=== PATIENT | female | born 1985 | race Caucasian/White ===

== ENCOUNTER 2017-02-17 09:58 | Emergency (ER) | payer BC | END 2017-02-17 10:50 | disposition left against medical advice (07) | LOC: UCEAST 09:58 | DX: N39.0 Urinary tract infection, site not specified (principal); Z53.21 Procedure and treatment not carried out due to patient leaving prior to being seen by health care provider ==

== ENCOUNTER 2017-02-17 11:26 | Emergency (ER) | payer BC, OTHER ==
[2017-02-17 12:56] VITALS: BP 116/58
--- NOTE | 2017-02-17 13:00 | UC ---
Complaint Female HPI - HPI Summary HPI Summary: Day 2 of pain and burning with urination no fevers, chills, nausea or back pain - History Of Current Complaint Chief Complaint: UCGU Stated Complaint: UTI Time Seen by Provider: 02/17/17 12:59 Hx Obtained From: Patient Hx Last Menstrual Period: 02/09/17 ?: No Onset/Duration: Sudden Onset, Lasting Days - 2, Still Present Timing: Constant Severity Initially: Moderate Severity Currently: Mild Pain Intensity: 5 Pain Scale Used: 0-10 Numeric Character: Burning Aggravating Factor(s): Urination Alleviating Factor(s): Nothing Associated Signs And Symptoms: Positive: Negative - Allergies/Home Medications Allergies/Adverse Reactions: Allergies Allergy/AdvReac Type Severity Reaction Status Date / Time No Known Allergies Allergy Verified 01/16/16 08:25 Home Medications: Home Medications Phenazopyridine HCl [Azo Urinary Pain Relief] 2 tab PO PRN 02/17/17 [History] PMH/Surg Hx/FS Hx/Imm Hx Previously Healthy: Yes Other History Of: Negative For: HIV, Hepatitis B, Hepatitis C - Surgical History Surgical History: Yes Surgery Procedure, Year, and Place: x 3; appendectomy. tubal ligation - Family History Known Family History: Positive: Diabetes - Social History Occupation: Employed Full-time Lives: With Family Alcohol Use: Occasionally Substance Use Type: None Smoking Status (MU): Former Smoker Amount Used/How Often: quit 4 years ago When Did the Patient Quit Smoking/Using Tobacco: 09/22/2009 - Immunization History Most Recent Influenza Vaccination: 07/18/13 Most Recent Tetanus Shot: 09/25/13 Most Recent Pneumonia Vaccination: none Review of Systems Constitutional: Negative Skin: Negative Eyes: Negative ENT: Negative Respiratory: Negative Cardiovascular: Negative Gastrointestinal: Negative Genitourinary: Dysuria, Frequency, Urgency Motor: Negative Neurovascular: Negative Musculoskeletal: Negative Neurological: Negative Psychological: Negative All Other Systems Reviewed And Are Negative: Yes Physical Exam Triage Information Reviewed: Yes Appearance: Well-Appearing, No Pain Distress, Well-Nourished Vital Signs: Initial Vital Signs Temp 98.9 F 02/17/17 12:56 Pulse 67 02/17/17 12:56 Resp 18 02/17/17 12:56 BP 116/58 02/17/17 12:56 Pulse Ox 100 02/17/17 12:56 Vital Signs Reviewed: Yes Eye Exam: Normal Eyes: Positive: Conjunctiva Clear ENT Exam: Normal ENT: Positive: Normal ENT inspection, Hearing grossly normal. Negative: Nasal congestion, Nasal drainage, Tonsillar swelling, Tonsillar exudate, Trismus, Muffled/hoarse voice Dental Exam: Normal Neck exam: Normal Neck: Positive: Supple, Nontender Respiratory Exam: Normal Respiratory: Positive: Chest non-tender, Lungs clear, No accessory muscle use Cardiovascular Exam: Normal Cardiovascular: Positive: RRR, No Murmur, Pulses Normal, Brisk Capillary Refill Musculoskeletal Exam: Normal Musculoskeletal: Positive: Strength Intact, ROM Intact, No Edema Neurological Exam: Normal Neurological: Positive: Alert, Muscle Tone Normal Psychological Exam: Normal Skin Exam: Normal Diagnostics - Laboratory Diagnostic Studies Completed/Ordered: Ua +nitrites, + blood Complaint Female Dx - Course Course Of Treatment: Increase fluids, macrobid, pyridium PRM follow with pcp - Differential Dx/Diagnosis Differential Diagnosis/HQI/PQRI: Sexually Transmitted Disease, Ureteral Stone, Urinary Tract Infection Provider Diagnoses: UTI Discharge - Discharge Plan Condition: Stable Disposition: HOME Prescriptions: Nitrofurantoin Monohyd Macro [Macrobid] 100 mg PO BID #20 cap Patient Education Materials: Phenazopyridine (By mouth), Urinary Tract Infection in Women (ED) Referrals: Jackson Andre MD [Primary Care Provider] - If Needed
== END 2017-02-17 13:54 | disposition home or self-care (01) ==
LOC: UCEAST 11:26
DX: Z87.891 Personal history of nicotine dependence (principal); N39.0 Urinary tract infection, site not specified; B96.20 Unspecified Escherichia coli [E. coli] as the cause of diseases classified elsewhere; Z16.11 Resistance to penicillins; Z16.29 Resistance to other single specified antibiotic; Z16.39 Resistance to other specified antimicrobial drug
CPT/HCPCS: 81003; 87077; 87086; 87186; 99212; G0463

== ENCOUNTER 2017-03-30 20:40 | Emergency (ER) | payer OTHER ==
[2017-03-30 20:45] VITALS: BP 141/82
--- NOTE | 2017-03-30 21:25 | UC ---
Jacoby Blankenship Benjamin, scribed for Guy Mitchell MD on 03/30/17 at 2112 . Skin Complaint HPI - HPI Summary HPI Summary: 31yo female presents with a dark scaly spotty rashes 2-3 weeks ago. Rash started in bilateral armpits, then spread to arms, legs, and stomach. LMP was 2 weeks ago. Pt has been applying anti-fungal cream without relief. - History of Current Complaint Chief Complaint: UCSkin Time Seen by Provider: 03/30/17 20:55 Stated Complaint: RASH Hx Obtained From: Patient Hx Last Menstrual Period: 2 WEEKS AGO ?: No Onset/Duration: Gradual Onset, Lasting Weeks, Still Present Onset Severity: Mild Current Severity: Moderate Pain Intensity: 0 Pain Scale Used: 0-10 Numeric Location: Diffuse - armpits, arms, legs, and stomach Character: Redness, Raised Aggravating: Nothing Alleviating: Nothing Associated Signs & Symptoms: Positive: Negative - Allergy/Home Medications Allergies/Adverse Reactions: Allergies Allergy/AdvReac Type Severity Reaction Status Date / Time No Known Allergies Allergy Verified 03/30/17 20:45 Home Medications: Home Medications Clotrimazole 1% CREAM* [Clotrimazole 1%*] PRN 03/30/17 [History] Review of Systems Constitutional: Negative Skin: Rash - bilateral armpits, arms, legs. stomach Eyes: Negative ENT: Negative Respiratory: Negative Cardiovascular: Negative Gastrointestinal: Negative Genitourinary: Negative Motor: Negative Neurovascular: Negative Musculoskeletal: Negative Neurological: Negative Psychological: Negative All Other Systems Reviewed And Are Negative: Yes PMH/Surg Hx/FS Hx/Imm Hx Previously Healthy: Yes Other History Of: Negative For: HIV, Hepatitis B, Hepatitis C - Surgical History Surgical History: Yes Surgery Procedure, Year, and Place: x 3; appendectomy. tubal ligation - Family History Known Family History: Positive: Diabetes Family History: NON CONTRIBUTORY - Social History Occupation: Employed Full-time Lives: With Family Alcohol Use: Occasionally Substance Use Type: None Smoking Status (MU): Former Smoker Amount Used/How Often: quit 4 years ago When Did the Patient Quit Smoking/Using Tobacco: 09/22/2009 - Immunization History Most Recent Influenza Vaccination: 07/18/13 Most Recent Tetanus Shot: 09/25/13 Most Recent Pneumonia Vaccination: none Physical Exam Triage Information Reviewed: Yes Appearance: Well-Appearing, No Pain Distress Vital Signs: Initial Vital Signs Temp 98.4 F 03/30/17 20:42 Pulse 76 03/30/17 20:42 Resp 16 03/30/17 20:42 BP 141/82 03/30/17 20:42 Pulse Ox 98 03/30/17 20:42 Vital Signs Reviewed: Yes ENT: Positive: Normal ENT inspection Neck: Positive: Supple Respiratory: Positive: Lungs clear, Normal breath sounds Cardiovascular: Positive: RRR, No Murmur Abdomen Description: Positive: Nontender Neurological: Positive: Alert, Muscle Tone Normal Psychological: Positive: Normal Response To Family Skin: Positive: rashes - The axilla bilateral are with hyperpigmentation with the periphery red, raised, and lichen like, scaly in places and there are satellite lesions down the inside of both upper arms, as well as some small patches at the waistband area of ther pants on the sides of her abdomen. Course/Dx - Course Course Of Treatment: Reviewed pt's medications list. 31 yr old using lotrimin, but not getting better. I concur this appears to be tinea in nature. Will add diflucan one dose this week and another dose in a week. She has been encouraged to see her primary care doctor so that he can follow the progress and so that she ahs the same doctor seeing her rash week to week. - Diagnoses Provider Diagnoses: tinea corporis Discharge - Discharge Plan Condition: Good Disposition: HOME Prescriptions: Fluconazole 100 MG TAB* [Diflucan 100 MG TAB*] 200 mg PO WEEKLY #4 tab Patient Education Materials: Tinea Corporis (ED), Skin Yeast Infection (ED), Hypertension (ED) Referrals: Jackson Andre MD [Primary Care Provider] - As Soon As Possible The documentation as recorded by the Jacoby sotelo Benjamin accurately reflects the service I personally performed and the decisions made by me, Guy Mitchell MD.
== END 2017-03-30 21:29 | disposition home or self-care (01) ==
LOC: UCEAST 20:40
DX: B35.4 Tinea corporis (principal); Z87.891 Personal history of nicotine dependence
CPT/HCPCS: 99212; G0463

== ENCOUNTER 2017-07-11 13:50 | Emergency (ER) | payer OTHER ==
--- NOTE | 2017-07-11 15:34 | UC ---
Skin Complaint HPI - HPI Summary HPI Summary: 32 year old male presents with complains of right axilla abscess. - History of Current Complaint Chief Complaint: UCSkin Time Seen by Provider: 07/11/17 15:31 Stated Complaint: SKIN ISSUE Hx Obtained From: Patient Hx Last Menstrual Period: 2 wks ago Onset/Duration: Gradual Onset Skin Exposure Onset/Duration: Days Ago Onset Severity: Moderate Current Severity: Moderate - Allergy/Home Medications Allergies/Adverse Reactions: Allergies Allergy/AdvReac Type Severity Reaction Status Date / Time No Known Allergies Allergy Verified 03/30/17 20:45 Review of Systems Constitutional: Negative Skin: Other - right axilla abscess Eyes: Negative ENT: Negative Respiratory: Negative Cardiovascular: Negative Gastrointestinal: Negative Genitourinary: Negative Motor: Negative Neurovascular: Negative Musculoskeletal: Negative Neurological: Negative Psychological: Negative All Other Systems Reviewed And Are Negative: Yes PMH/Surg Hx/FS Hx/Imm Hx Previously Healthy: Yes Other History Of: Negative For: HIV, Hepatitis B, Hepatitis C - Surgical History Surgical History: Yes Surgery Procedure, Year, and Place: x 3; appendectomy. tubal ligation - Family History Known Family History: Positive: Diabetes Family History: NON CONTRIBUTORY - Social History Alcohol Use: Occasionally Substance Use Type: None Smoking Status (MU): Former Smoker Amount Used/How Often: quit 4 years ago When Did the Patient Quit Smoking/Using Tobacco: 09/22/2009 - Immunization History Most Recent Influenza Vaccination: 07/18/13 Most Recent Tetanus Shot: 09/25/13 Most Recent Pneumonia Vaccination: none Physical Exam Triage Information Reviewed: Yes Appearance: Well-Appearing Vital Signs: Initial Vital Signs Temp 36.9 C 07/11/17 15:05 Pulse 84 07/11/17 15:05 Resp 12 07/11/17 15:05 Pulse Ox 100 07/11/17 15:05 Vital Signs Reviewed: Yes Eye Exam: Normal ENT Exam: Normal Dental Exam: Normal Neck exam: Normal Neck: Positive: 1 Respiratory Exam: Normal Cardiovascular Exam: Normal Abdominal Exam: Normal Musculoskeletal Exam: Normal Neurological Exam: Normal Psychological Exam: Normal Skin: Positive: Other - right axilla abscess Course/Dx - Diagnoses Provider Diagnoses: right axilla abscess Discharge - Discharge Plan Condition: Stable Disposition: HOME Prescriptions: Cephalexin CAP* [Keflex CAP*] 500 mg PO TID #30 cap Patient Education Materials: Abscess (ED) Referrals: CochPaz, MD [Primary Care Provider] - Tiffanie Brown PA [Physician Recycler] -
== END 2017-07-11 16:10 | disposition home or self-care (01) ==
LOC: UCEAST 13:50
DX: L02.411 Cutaneous abscess of right axilla (principal); Z87.891 Personal history of nicotine dependence
CPT/HCPCS: 99212; G0463

== ENCOUNTER 2019-11-15 09:26 | Emergency (ER) | payer BC, OTHER ==
[2019-11-15 09:38] VITALS: BP 116/75
[2019-11-15 10:10] LABS: Influenza B Molecular POSITIVE (Negative)
--- NOTE | 2019-11-15 10:15 | ED ---
Influenza-Like Illness - HPI Summary HPI Summary: 34 yo female presents with flu-like symptoms. She tells me that beginning on sunday 11/12 she developed fever, fatigue, body aches, sinus congestion, cough, ear pain, and nausea. Symptoms have been persisting since. She has been taking ibuprofen and tylenol with good intermittent relief. She did not get a flu shot this year. Denies rash, SOB, chest pain, abdominal pain, vomiting, dysuria. - History of Current Complaint Chief Complaint: UCGeneralIllness Time Seen by Provider: 11/15/19 09:57 Hx Obtained From: Patient Onset/Duration: Sudden Onset Severity: Moderate - Allergy/Home Medications Allergies/Adverse Reactions: Allergies Allergy/AdvReac Type Severity Reaction Status Date / Time No Known Allergies Allergy Verified 07/18/17 18:38 Home Medications: Home Medications Amoxicillin/Clavulanate TAB* [Augmentin TAB 875*] 875 mg PO BID #14 tab [Rx] Ibuprofen TAB* [Motrin TAB* 600 MG] 600 mg PO Q6H PRN 11/15/19 [History Confirmed 11/15/19] PMH/Surg Hx/FS Hx/Imm Hx Endocrine/Hematology History: Denies: Hx Diabetes, Hx Thyroid Disease Cardiovascular History: Denies: Hx Congestive Heart Failure, Hx Deep Vein Thrombosis, Hx Hypertension , Hx Myocardial Infarction, Hx Pacemaker/ICD Respiratory History: Denies: Hx Asthma, Hx Chronic Obstructive Pulmonary Disease (COPD), Hx Lung Cancer GI History: Denies: Hx Ulcer Neurological History: Denies: Hx Dementia, Hx Migraine, Hx Seizures, Hx Transient Ischemic Attacks (TIA) Psychiatric History: Denies: Hx Anxiety, Hx Depression, Hx Schizophrenia, Hx Bipolar Disorder - Surgical History Surgical History: Yes Surgery Procedure, Year, and Place: x 3; appendectomy. tubal ligation - Immunization History Immunizations Up to Date: Yes Infectious Disease History: No Infectious Disease History: Denies: Hx Clostridium Difficile, Hx Hepatitis, Hx Human Immunodeficiency Virus (HIV), Hx of Known/Suspected MRSA, Hx Shingles, Hx Tuberculosis, Hx Known/ Suspected VRSA, History Other Infectious Disease, Traveled Outside the [place] in Last 30 Days - Family History Known Family History: Positive: Diabetes - Social History Occupation: Employed Full-time Lives: With Family Alcohol Use: Occasionally Substance Use Type: Reports: None Smoking Status (MU): Former Smoker Amount Used/How Often: quit 4 years ago Review of Systems Positive: Fever, Chills, Fatigue, Other - Body aches Eyes: Negative Positive: Sore Throat, Ear Ache, Nasal Discharge Cardiovascular: Negative Positive: Cough Neurological/Mental Status: Negative Positive: Headache Psychological: Normal All Other Systems Reviewed And Are Negative: No Physical Exam - Summary Physical Exam Summary: GENERAL: NAD. WDWN. No pain distress. SKIN: No rashes, sores, lesions, or open wounds. HEENT: Head: AT/NC Eyes: EOM intact. Conjunctiva clear without inflammation or discharge. Ears: Hearing grossly normal. LEFT TM with mild erythema and bulging. No canal edema or drainage. Nose: Nasal mucosa pink and moist with yellow rhinorrhea. NTTP maxillary and frontal sinus. Throat: Posterior oropharynx without exudates, erythema, or tonsillar enlargement. Uvula midline. NECK: Supple. Mild ttp anterior cervical LAD. CHEST: Mild wheezing throughout. No crackles. No accessory muscle use. Breathing comfortably and in no distress. CV: RRR. Without m/r/g. Pulses intact. NEURO: Alert. PSYCH: Age appropriate behavior. Triage Information Reviewed: Yes Vital Signs On Initial Exam: Initial Vitals Temp Pulse Resp BP Pulse Ox 100.5 F 90 20 116/75 96 11/15/19 09:35 11/15/19 09:35 11/15/19 09:35 11/15/19 09:35 11/15/19 09:35 Laboratory Tests 11/15/19 10:03 Influenza B (Rapid) Positive H Vital Signs Reviewed: Yes Diagnostics - Vital Signs Vital Signs Temp Pulse Resp BP Pulse Ox 11/15/19 09:35 100.5 F 90 20 116/75 96 - Laboratory Lab Results: Lab Results 11/15/19 Range/Units 10:03 Influenza B (Rapid) Positive H (Negative) Lab Statement: Any lab studies that have been ordered have been reviewed, and results considered in the medical decision making process. Flu Symptom Course/Dx - Course Course Of Treatment: POC flu positive. Otitis media left - rx for augmentin. - Diagnoses Provider Diagnoses: Influenza, Otitis media Discharge ED - Sign-Out/Discharge Documenting (check all that apply): Patient Departure All imaging exams completed and their final reports reviewed: No Studies - Discharge Plan Condition: Stable Disposition: HOME Prescriptions: Amoxicillin/Clavulanate TAB* [Augmentin TAB 875*] 875 mg PO BID #14 tab Patient Education Materials: Influenza (ED), Ear Infection (ED) Forms: *Work Release Referrals: Jackson Andre MD [Primary Care Provider] - Additional Instructions: Most people with the flu recover within one to two weeks without treatment. However, serious complications of the flu can occur. Go to the ER immediately if you: -- You feel short of breath or have trouble breathing -- You have pain or pressure in your chest or stomach -- You have signs of being dehydrated, such as dizziness when standing or not passing urine -- You feel confused -- You cannot stop vomiting or you cannot drink enough fluids There are several groups of people who are at increased risk for flu complications. These include women, young children (<5 years of age and especially <2 years of age), people older than 65 years of age, and people with certain diseases such as chronic lung disease (such as asthma), heart disease, diabetes, immunosuppressing conditions (such as HIV infection or transplantation), and some other diseases. Treat symptoms Treating the symptoms of influenza can help you to feel better but will not make the flu go away faster. -- Rest until the flu is fully resolved, especially if the illness has been severe. -- Fluids Drink enough fluids so that you do not become dehydrated. One way to cone winder if you are drinking enough is to look at the color of your urine. Normally, urine should be light yellow to nearly colorless. If you are drinking enough, you should pass urine every three to five hours. -- Acetaminophen (sample brand name: Tylenol) can relieve fever, headache, and muscle aches. Aspirin and medicines that include aspirin (eg, bismuth subsalicylate [sample brand name: Pepto-Bismol]) are not recommended for children under 18 because aspirin can lead to a serious disease called Yony syndrome. -- Cough medicines are not usually helpful; cough usually resolves without treatment. We do not recommend cough or cold medicine for children under age 6 years. - Billing Disposition and Condition Condition: STABLE Disposition: Home
== END 2019-11-15 10:25 | disposition home or self-care (01) ==
LOC: UCEAST 09:26
DX: J11.1 Influenza due to unidentified influenza virus with other respiratory manifestations (principal); H66.92 Otitis media, unspecified, left ear; Z87.891 Personal history of nicotine dependence
CPT/HCPCS: 99212; G0463